=== PATIENT | male | born 1975 | race Caucasian/White ===

== ENCOUNTER 2021-03-02 03:18 | Emergency (ER) | payer OTHER ==
[2021-03-02 04:25] LABS: BASOPHIL 0.5 % (0-2); HCT 38.4 % (42.0-52.0); HGB 13.8 g/dl (13.2-18.0); LYMPHOCYTE 37.7 % (15-48); MCH 32.7 pg (25.0-31.0); MCHC 35.9 g/dL (32.0-36.0); MONOCYTE 8.1 % (0-12); MPV 9.9 fL (6.0-9.5); NEUTROPHIL 50.5 % (41-80); NRBC 0; PLT 188 K/uL (150-400); RBC 4.22 M/uL (4.70-6.00); RDW 12.6 % (11.5-14.0); WBC 8.1 K/uL (4.0-10.5)
== END 2021-03-02 06:52 | disposition home or self-care (01) ==
LOC: FER 03:18
PROVIDERS: Emergency Medicine Emergency Medical Services
DX: K04.7 Periapical abscess without sinus (principal); R60.0 Localized edema; R10.9 Unspecified abdominal pain; F17.210 Nicotine dependence, cigarettes, uncomplicated
CPT/HCPCS: 36415; 85025; 96372; J0561; J1885; J7120